=== PATIENT | female | born 1980 | race Caucasian/White ===

== ENCOUNTER 2024-11-12 19:12 | Emergency (ER) | payer OTHER, SELFPAY ==
--- NOTE | ~2024-11-12 | XR_ITS ---
XR wrist RT min 3V Ordering provider: Pattie Lyman APRN History: . Dropped weight on hand and wrist. . Comparison: None. FINDINGS: BONES: fracture in the distal metaphysis of the right radius. Follow-up advised. No displacement seen . JOINT SPACES: Normal. SOFT TISSUES: Normal. IMPRESSION: fracture in distal metaphysis of the right radius. Follow-up advised. Reviewed, dictated and finalized at location A.
--- NOTE | 2024-11-12 19:15 | ED_ITS ---
HPI - Extremity Injury (Upper) General Chief Complaint: Extremity Injury, Upper Stated Complaint: Right Hand/Wrist Pain Time Seen by Provider: 11/12/24 19:23 Source: patient, RN notes reviewed and old records reviewed Mode of arrival: ambulatory Limitations: no limitations History of Present Illness HPI narrative: 43-year-old female presents to the [facility] with right hand and wrist pain. Patient states 10 minutes prior to arrival she was helping her son rearrange his bedroom, moving a a large weight bench when it fell backwards onto her wrist. No treatment prior to arrival Swelling is noted. Pain with any movement of the wrist and hand. Positive radial pulse capillary refill under 2 seconds Related Data Home Medications ?Medication ?Instructions ?Recorded ?Confirmed ?Last Taken ?Type buspirone 10 mg tablet mg 11/12/24 Unknown History escitalopram oxalate 10 mg tablet mg 11/12/24 Unknown History tirzepatide 10 mg/0.5 mL mg subcut 11/12/24 Unknown History subcutaneous pen injector (Mounjaro) Allergies Allergy/AdvReac Type Severity Reaction Status Date / Time No Known Allergies Allergy Mild Verified 11/12/24 19:13 Review of Systems Review of Systems: All systems reviewed & are unremarkable except as noted in HPI and below Constitutional: Constitutional: Reports no additional constitutional complaints Cardiovascular: Cardiovascular: Reports no additional cardiovascular complaints, Denies chest pain and Denies dyspnea Respiratory: Respiratory: Reports no additional respiratory complaints, Denies chest congestion, Denies cough and Denies dyspnea Musculoskeletal: Musculoskeletal: Reports as per HPI Integumentary/Breasts: Skin/Breast: Reports system reviewed and no additional complaints, except as docu PMFSH Past Medical History Medical History (Updated 11/12/24 @ 20:21 by Pattie Lyman APRN) Anxiety Surgical History Surgical History (Updated 11/12/24 @ 19:55 by Pattie Lyman APRN) History of weight loss surgery History of appendectomy Hx of cholecystectomy Comments At the time of my signature, I reviewed and agree with the nursing past medical, surgical, social, and family history. There is no relevant family history pertinent to the patient complaint. Exam Const: General: cooperative, well developed, alert, uncomfortable and well nourished Nutritional Appearance: well nourished Orientation/consciousness: patient oriented x3 Limitations: no limitations HENMT: Head: normal to inspection Eyes: General: appearance normal, both eyes and all related structures Alignment and Position: alignment normal Neck: Neck: normal visual inspection, full ROM, no lymphadenopathy and no meningeal signs Chest: Chest palpation & inspection: normal inspection of the chest Resp: Effort & Inspection: normal respiratory effort and able to speak in complete sentences Cardio: Rate: regular rate Skin: General skin exam: normal color and no rashes or lesions noted Neuro: General: patient oriented x3, gait normal, moves all extremities and no meningeal signs Cognition (Neuro): normal cognition Speech: normal speech Gait exam (Neuro): Normal gait present Extrem: General: normal to inspection, full ROM, capillary refill normal and normal gait Right upper extremity: elbow/forearm normal to inspection and normal ROM; no tenderness and no swelling, wrist tenderness, swelling, abnormal ROM pain with active ROM during, normal vascular exam and radial pulse present 2+; no abrasions, no lacerations, no foreign body and no penetrating wound and Extremity exam: right hand normal capillary refill, vascular exam radial pulse present and normal capillary refill, abnormal ROM of finger pain with passive ROM and swelling; no abrasions, no lacerations, no crepitus, no foreign bodies and no puncture wound Psych: Appearance: grossly normal and well kempt Mental Status: mental status grossly normal Speech and movement: Normal speech and movement present and Clear speech present Affect: normal affect Attitude: cooperative Course Course Level of Care: Express Care Visit Vital Signs Vital signs: Vital Signs Temperature 97.2 F L 11/12/24 19:24 Pulse Rate 92 11/12/24 19:24 Respiratory Rate 20 11/12/24 19:24 Blood Pressure 146/104 H 11/12/24 19:24 Pulse Oximetry 97 11/12/24 19:24 Oxygen Delivery Room Air 11/12/24 19:24 Temperature 97.2 F L 11/12/24 19:24 Pulse Rate 92 11/12/24 19:24 Respiratory Rate 20 11/12/24 19:24 Blood Pressure 146/104 H 11/12/24 19:24 Pulse Oximetry 97 11/12/24 19:24 Oxygen Delivery Room Air 11/12/24 19:24 Reviewed MDM - Extremity Injury (Upper) MDM Narrative Medical decision making narrative: Patient sitting in exam room. Nontoxic, vitals stable. Patient presents with right wrist pain X-ray shows distal right radius fracture Splint and sling applied Patient appropriate for outpatient treatment and follow-up Discharge instructions reviewed with patient, as well as provided in writing per nursing staff. The instructions also include specific and strict return/GO TO THE ER as well as f/u information. All questions have been answered, and the patient deny any further questions with discharge and discharge plan. Some parts of this dictation were generated by voice recognition software and may contain typographical and/or grammatical inaccuracies. Differential Diagnosis Differential diagnosis: Likely sprain and strain of wrist, fracture of wrist and other (Contusion) Imaging Data Radiologist's impression: XR wrist RT min 3V Ordering provider: Pattie Lyman APRN History: . Dropped weight on hand and wrist. . Comparison: None. FINDINGS: BONES: fracture in the distal metaphysis of the right radius. Follow-up advised. No displacement seen. JOINT SPACES: Normal. SOFT TISSUES: Normal. IMPRESSION: fracture in distal metaphysis of the right radius. Follow-up advised. Critical Care Time Critical Care Time Critical Care Time: No Discharge Plan Discharge Clinical Impression: Fracture of distal end of radius Qualifiers: Encounter type: initial encounter Fracture type: closed Fracture morphology: unspecified fracture morphology Laterality: right Qualified Code(s): S52.501A - Unspecified fracture of the lower end of right radius, initial encounter for closed fracture Patient Disposition: Home Condition: Stable Instructions: Antibiotic Form, Wrist Fracture in Adults (ED), How to Use a Sling (ED), Splint Care (ED) Additional Instructions: Follow-up with primary care provider Follow-up with orthopedic. Call in the morning for close follow-up appointment Wear the splint and the sling at all times Take Motrin 600 mg alternating with 500 mg of Tylenol every 4 hours while awake. Rest, ice and elevate every 2-3 hours for 15-20 minutes while awake Patient Language: [place] Prescriptions: No Action buspirone 10 mg tablet escitalopram oxalate 10 mg tablet Mounjaro 10 mg/0.5 mL pen injector SUBCUT Follow-up/Referrals: Gal,MD Shaylee [Primary Care Provider] - Tonio Russell MD [Physician] - 2 Days (express care follow up ) Stand Alone Forms: Work/School Release IP Time of Disposition: 20:22
[2024-11-12 19:24] VITALS: BP 146/104; PULSE 92; RESP 20; TEMP 36.2; O2SAT 97
== END 2024-11-12 20:41 | disposition home or self-care (01) ==
PROVIDERS: Emergency Provider Nurse Practitioner; PCP Family Medicine
DX: S52.501A Unspecified fracture of the lower end of right radius, initial encounter for closed fracture (principal); W20.8XXA Other cause of strike by thrown, projected or falling object, initial encounter
CPT/HCPCS: 29125; 73110; 99214; A4565; G0463

== ENCOUNTER 2025-01-21 19:15 | Emergency (ER) | payer OTHER, SELFPAY ==
[2025-01-21 19:22] VITALS: BP 148/86; PULSE 86; RESP 16; TEMP 36.5; O2SAT 100
--- NOTE | 2025-01-21 19:58 | ED.FEMALEGU ---
HPI - Female Genitourinary General Stated complaint: urinary irritation Time Seen by Provider: 01/21/25 19:40 Source: patient and RN notes reviewed Mode of arrival: ambulatory Limitations: no limitations History of Present Illness HPI Narrative: 44-year-old female presents Express Care complaining of urinary symptoms since today. Patient reports having dysuria, increased frequency, suprapubic pain, nausea, and blood in her urine. Patient denies any fevers, body aches, chills, back pain, vomiting, or diarrhea. Patient took Azo prior to arrival for dysuria. Patient denies any significant past medical history. Patient has a history of UTIs. Related Data Home Medications ?Medication ?Instructions ?Recorded ?Confirmed ?Last Taken ?Type buspirone 10 mg tablet mg 11/12/24 Unknown History escitalopram oxalate 10 mg tablet mg 11/12/24 Unknown History tirzepatide 10 mg/0.5 mL mg subcut 11/12/24 Unknown History subcutaneous pen injector (Mounjaro) Allergies Allergy/AdvReac Type Severity Reaction Status Date / Time No Known Allergies Allergy Mild Verified 11/12/24 19:13 Review of Systems Review of Systems: CONSTITUTIONAL: Denies fever, chills, body aches, or sweats. EYES: Denies visual changes, redness, or discharge. ENT: Denies rhinorrhea, congestion, sore throat, or otalgia. CARDIOVASCULAR: Denies chest pain, palpitations, or edema. RESPIRATORY: Denies cough or dyspnea. GASTROINTESTINAL: Denies abdominal pain, vomiting, or diarrhea. Positive for nausea. GENITOURINARY: Positive for suprapubic pain, dysuria, increased frequency, hesitancy, hematuria. SKIN: Denies rash or itching. MUSCULOSKELETAL: Denies back pain, joint pain, or myalgia. NEUROLOGIC: Denies headache, numbness, or weakness. PSYCHIATRIC: Denies anxiety or depression. All other systems reviewed are negative, except as documented in HPI. [facility] Past Medical History Medical History Anxiety Surgical History Surgical History History of weight loss surgery History of appendectomy Hx of cholecystectomy Comments At the time of my signature, I reviewed and agree with the nursing past medical, surgical, social, and family history. There is no relevant family history pertinent to the patient complaint. Exam Narrative: GENERAL: This is a well-nourished, well-developed adult, in no apparent distress. They are non ill-appearing, nontoxic appearing. HEAD: normocephalic, atraumatic. EYES: Sclera clear/white. Vision is grossly intact. Conjunctiva normal bilaterally. Extraocular movements intact. EARS: External ears normal,Hearing grossly intact. NOSE: External nose normal THROAT: Mucous membranes moist NECK: Normal range of motion CARDIOVASCULAR: Regular rate and rhythm. Normal S1-S2. No clicks, gallops, rubs, murmurs. RESPIRATORY: Respiratory rate normal, respiratory effort nonlabored, no respiratory distress. Lung sounds clear to auscultation throughout. Lung sounds equal bilaterally. No adventitious lung sounds. GASTROINTESTINAL: Abdomen soft, flat, mild suprapubic tenderness to palpation, nondistended. Bowel sounds are active. No hepato-splenomegaly, or palpable masses. No guarding. No rebound tenderness. SKIN: warm, Dry, intact with no suspicious lesions or rash, good texture and turgor. NEURO: awake, alert, and oriented to person, place and time. There were no obvious focal neurologic abnormalities. EXTREMITIES: No joint tenderness, effusion, or edema noted. BACK: Nontender without deformity. No CVA tenderness. Course Course Emergency Course: Portions of this record may have been created with voice recognition software Level of Care: Express Care Visit Vital Signs Vital signs: Vital Signs Temperature 97.7 F 01/21/25 19:22 Pulse Rate 86 01/21/25 19:22 Respiratory Rate 16 01/21/25 19:22 Blood Pressure 148/86 H 01/21/25 19:22 Pulse Oximetry 100 01/21/25 19:22 Oxygen Delivery Room Air 01/21/25 19:22 Temperature 97.7 F 01/21/25 19:22 Pulse Rate 86 01/21/25 19:22 Respiratory Rate 16 01/21/25 19:22 Blood Pressure 148/86 H 01/21/25 19:22 Pulse Oximetry 100 01/21/25 19:22 Oxygen Delivery Room Air 01/21/25 19:22 MDM - Female Genitourinary MDM Narrative Medical decision making narrative: Unable to perform urine dipstick is patient took Azo today which may contaminate the results. Urine culture pending. Patient's symptoms are clinically consistent with urinary tract infection. Through shared decision making was decided to go ahead and start treatment prior to urine culture results. Will treat patient with cephalexin. Discussed physical exam findings. Advised supportive measures and signs/symptoms to go to the ER. Pt is appropriate for outpt treatment and f/u. Differential Diagnosis Differential diagnosis: Likely urinary tract infection, cystitis and other (Pyelonephritis) Lab Data Attestation: I reviewed the patient's lab results. Discharge Plan Discharge Clinical Impression: Urinary tract infection Qualifiers: Urinary tract infection type: site unspecified Hematuria presence: with hematuria Qualified Code(s): N39.0 - Urinary tract infection, site not specified Patient Disposition: Home Condition: Stable Instructions: Antibiotic Form, Urinary Tract Infection in Women (ED) Additional Instructions: Take the antibiotic as prescribed The urine will be sent of for a culture to identify what type of bacteria is causing your infection. If the culture shows that the antibiotic will not get rid of your infection, you will be notified and a new antibiotic will be called in for you. Increase water intake you will need to follow up with your PCP 3-5 days. Go to the ER for any worsening symptoms, abdominal pain, fevers, nausea, vomiting, or any other concerns Patient Language: [place] Prescriptions: New fluconazole 150 mg tablet 150 mg PO Q72H Qty: 3 0RF cephalexin 500 mg capsule 500 mg PO BID 7 Days Qty: 14 0RF No Action buspirone 10 mg tablet escitalopram oxalate 10 mg tablet Mounjaro 10 mg/0.5 mL pen injector SUBCUT Follow-up/Referrals: Gal,MD Shaylee [Primary Care Provider] - Time of Disposition: 19:51
== END 2025-01-21 20:08 | disposition home or self-care (01) ==
PROVIDERS: PCP Family Medicine
DX: N39.0 Urinary tract infection, site not specified (principal); F41.9 Anxiety disorder, unspecified
CPT/HCPCS: 87086; 99213; G0463